=== PATIENT | male | born 1985 | race Hispanic/Latino ===

== ENCOUNTER 2023-09-08 22:34 | Emergency (ER) | payer OTHER ==
[~2023-09-08] VITALS: Ht 180.3 cm; Wt 181.0 kg
[2023-09-08 23:39] LABS: BASOPHILS % 0.4 % (0.0-1.0); EOSINOPHILS # (AUTO) 0.4 (0.0-0.4); EOSINOPHILS % 4.8 % (0.0-6.0); HEMATOCRIT 31.2 % (38.2-49.6); LYMPHOCYTES # (AUTO) 1.5 (1.0-3.2); LYMPHOCYTES % 20.1 % (18.0-39.1); MEAN CORPUSCULAR HEMOGLOBIN 23.1 pg (28-32); MEAN CORPUSCULAR HGB CONC 28.8 g/dL (31-35); MONOCYTES # (AUTO) 0.9 (0.2-0.8); MONOCYTES % 11.4 % (4.4-11.3); NEUTROPHILS # (AUTO) 4.7 (2.1-6.9); NEUTROPHILS % 62.8 % (38.7-80.0); PLATELET COUNT 78 x10e3/uL (140-360); RED CELL DISTRIBUTION WIDTH 17.6 % (11.7-14.4); WHITE BLOOD COUNT 7.52 x10e3/uL (4.8-10.8)
[2023-09-09] LABS: TROPONIN I 0.142 ng/mL (0-0.300)
[2023-09-09 00:01] LABS: ALBUMIN 2.2 g/dL (3.5-5.0); ALBUMIN/GLOBULIN RATIO 0.5 (0.8-2.0); ANION GAP 11.2 mmol/L (8-16); BILIRUBIN,TOTAL 2.4 mg/dL (0.2-1.2); CALCIUM 8.1 mg/dL (8.4-10.2); CREATININE, SERUM 0.71 mg/dL (0.72-1.25)
[2023-09-09 00:07] LABS: INFLUENZAE A&B ANTIGEN (RAPID) NEGATIVE (NEGATIVE)
[2023-09-09 00:08] LABS: STREPTOCOCCUS GRP A ANTIGEN NEGATIVE (NEGATIVE)
[2023-09-09 00:09] LABS: POTASSIUM 3.2 mmol/L (3.5-5.1)
[2023-09-09 02:07] LABS: TROPONIN I 0.158 ng/mL (0-0.300)
[2023-09-09] MEDS ORDERED: AZITHROMYCIN250 MG PO (02:46)
[2023-09-09 03:21] VITALS: PULSE 70; RESP 18; TEMP 98.5; O2SAT 99
== END 2023-09-09 03:24 | disposition home or self-care (01) ==
LOC: ER 22:45
DX: R06.02 Shortness of breath (principal); J02.9 Acute pharyngitis, unspecified; D64.9 Anemia, unspecified; E66.01 Morbid (severe) obesity due to excess calories; R94.31 Abnormal electrocardiogram [ECG] [EKG]; Z11.52 Encounter for screening for COVID-19
CPT/HCPCS: 36415; 71045; 80053; 82550; 83518; 83690; 83880; 84484; 85025; 87070; 87400; 93005 ×2; 99284; U0002

== ENCOUNTER 2024-01-10 01:35 | Inpatient (IN) | payer OTHER ==
[~2024-01-10] VITALS: Ht 167.6 cm; Wt 191.0 kg
[2024-01-10] VITALS (55 sets, daily range): BP systolic 112–169; BP diastolic 58–99; PULSE 77–102; RESP 15–32; TEMP 97.8–98.6; O2SAT 97–100
[~2024-01-10 01:35] MED LIST: AZITHROMYCIN250 MG PO
[2024-01-10 02:23] LABS: BASOPHILS % 0.6 % (0.0-1.0); EOSINOPHILS # (AUTO) 0.2 (0.0-0.4); EOSINOPHILS % 6.6 % (0.0-6.0); HEMATOCRIT 25.2 % (38.2-49.6); LYMPHOCYTES # (AUTO) 1.3 (1.0-3.2); MEAN CORPUSCULAR HEMOGLOBIN 20.8 pg (28-32); MEAN CORPUSCULAR VOLUME 77.1 fL (81-99); MONOCYTES # (AUTO) 0.6 (0.2-0.8); MONOCYTES % 20.1 % (4.4-11.3); NEUTROPHILS % 30.4 % (38.7-80.0); RED BLOOD COUNT 3.27 x10e6/uL (4.3-5.7); RED CELL DISTRIBUTION WIDTH 21.7 % (11.7-14.4); WHITE BLOOD COUNT 3.19 x10e3/uL (4.8-10.8)
[2024-01-10 02:36] LABS: ALBUMIN 2.2 g/dL (3.5-5.0); ALBUMIN/GLOBULIN RATIO 0.6 (0.8-2.0); ANION GAP 9.3 mmol/L (8-16); BILIRUBIN,TOTAL 4.4 mg/dL (0.2-1.2); CALCIUM 7.8 mg/dL (8.4-10.2); CREATININE, SERUM 0.65 mg/dL (0.72-1.25); TOTAL PROTEIN 6.1 g/dL (6.5-8.1)
[2024-01-10 02:38] LABS: POTASSIUM 3.3 mmol/L (3.5-5.1)
[2024-01-10 02:44] LABS: HEMOGLOBIN 6.8 g/dL (14.0-18.0); PLATELET COUNT 68 x10e3/uL (140-360)
[2024-01-10] MEDS ORDERED: SODIUM CHLORIDE FLUSH 10 ML SYR INJ PRN (03:00)
[2024-01-10] MEDS ORDERED: ONDANSETRON HCL INJ 2MG/ML 2ML 2 MG/ML VIAL IV PRN (03:00)
[2024-01-10 03:46] LABS: INR 1.78; PARTIAL THROMBOPLASTIN TIME 35.4 seconds (23.8-35.5); PROTHROMBIN TIME 21.7 seconds (11.9-14.5)
[2024-01-10] MEDS: FUROSEMIDE INJ 10 MG/ML 4 ML VIAL IV SCH (04:08)
[2024-01-10] MEDS: SODIUM CHLORIDE 0.9% 250ML 250 ML IV ONE (06:21)
[2024-01-10] MEDS ORDERED: FERROUS SULFAT325 M1 PO (08:01)
[2024-01-10] MEDS ORDERED: FUROSEMIDE40 MG PO (08:01)
[2024-01-10] MEDS ORDERED: SPIRONOLACTONE25 MG PO (08:01)
[2024-01-10] MEDS ORDERED: DOCUSATE SODIU100 MG PO (08:01)
[2024-01-10] MEDS ORDERED: K-DUR10 MEQ PO (08:02)
[2024-01-10] MEDS ORDERED: ALDACTONE50 MG PO (08:03)
[2024-01-10] MEDS ORDERED: PANTOPRAZOLE SO40 MG PO (08:07)
[2024-01-10 08:42] LABS: EOSINOPHILS % (MANUAL) 6 % (0-7); LYMPHOCYTES % (MANUAL) 37 % (19-48); MONOCYTES % (MANUAL) 24 % (3.4-9.0); NEUTROPHILS % (MANUAL) 33 % (40-74); PLATELET ESTIMATE MODERATELY DECREASED; PLATELET MORPHOLOGY COMMENT NORMAL; RBC MORPHOLOGY COMMENT NORMAL
[2024-01-10 08:43] LABS: ANISOCYTOSIS SLIGHT
[2024-01-10] MEDS ORDERED: ALBUTEROL/IPRATROPIUM 3 ML NEB NEB PRN (11:00)
[2024-01-10] MEDS ORDERED: SIMETHICONE 80 MG CHEW PO PRN (11:00)
[2024-01-10] MEDS ORDERED: MELATONIN 3 MG TAB PO PRN (11:00)
[2024-01-10] MEDS: SPIRONOLACTONE 25 MG TAB PO SCH (12:31)
[2024-01-10] MEDS: FUROSEMIDE INJ 10 MG/ML 2 ML VIAL IV SCH (19:05)
[2024-01-10] MEDS: DOCUSATE SODIUM 100 MG CAP PO SCH (19:05)
[2024-01-11] VITALS (7 sets, daily range): BP systolic 112–128; BP diastolic 59–74; PULSE 84–96; RESP 16–20; TEMP 97.7–98.6; O2SAT 99–100
[2024-01-11 00:36] LABS: % IRON SATURATION 11 % (15-50); IRON 34 ug/dL (65-175); TOTAL IRON BINDING CAPACITY 301 ug/dL (261-478); TRANSFERRIN 215 mg/dL (174-364)
[2024-01-11 01:34] LABS: FOLATE 5.1 ng/mL (7.0-15.4)
[2024-01-11 06:29] LABS: BASOPHILS % 0.8 % (0.0-1.0); EOSINOPHILS # (AUTO) 0.5 (0.0-0.4); EOSINOPHILS % 12.1 % (0.0-6.0); HEMATOCRIT 27.4 % (38.2-49.6); LYMPHOCYTES # (AUTO) 1.4 (1.0-3.2); LYMPHOCYTES % 34.2 % (18.0-39.1); MEAN CORPUSCULAR HGB CONC 29.2 g/dL (31-35); MEAN CORPUSCULAR VOLUME 75.3 fL (81-99); MONOCYTES # (AUTO) 0.7 (0.2-0.8); MONOCYTES % 16.8 % (4.4-11.3); NEUTROPHILS # (AUTO) 1.4 (2.1-6.9); NEUTROPHILS % 35.8 % (38.7-80.0); PLATELET COUNT 69 x10e3/uL (140-360); RED BLOOD COUNT 3.64 x10e6/uL (4.3-5.7); RED CELL DISTRIBUTION WIDTH 20.6 % (11.7-14.4); WHITE BLOOD COUNT 3.98 x10e3/uL (4.8-10.8)
[2024-01-11 06:46] LABS: INR 1.68; PROTHROMBIN TIME 20.7 seconds (11.9-14.5)
[2024-01-11 06:54] LABS: ALBUMIN 2.2 g/dL (3.5-5.0); BILIRUBIN,DIRECT 1.2 mg/dL (0.0-0.5); BILIRUBIN,TOTAL 5.8 mg/dL (0.2-1.2); TOTAL PROTEIN 6.2 g/dL (6.5-8.1)
[2024-01-11 06:56] LABS: ALBUMIN 2.2 g/dL (3.5-5.0); ALBUMIN/GLOBULIN RATIO 0.5 (0.8-2.0); ANION GAP 9.5 mmol/L (8-16); BILIRUBIN,TOTAL 5.9 mg/dL (0.2-1.2); CREATININE, SERUM 0.6 mg/dL (0.72-1.25); POTASSIUM 3.5 mmol/L (3.5-5.1); TOTAL PROTEIN 6.3 g/dL (6.5-8.1)
[2024-01-11] MEDS: PANTOPRAZOLE SOD 40 MG TABEC PO SCH ×2 (07:30→18:09)
[2024-01-11 07:59] LABS: PLATELET ESTIMATE MODERATELY DECREASED; PLATELET MORPHOLOGY COMMENT NORMAL
[2024-01-11 08:00] LABS: HYPOCHROMASIA MODERATE; MICROCYTOSIS MODERATE; RBC MORPHOLOGY COMMENT ABNORMAL
[2024-01-11 08:01] LABS: OVALOCYTES FEW; TARGET CELLS FEW; TEAR DROP CELLS FEW
[2024-01-11] MEDS: FERROUS SULFATE 325 MG TAB PO SCH (09:00)
[2024-01-11] MEDS: SPIRONOLACTONE 25 MG TAB PO SCH (09:00)
[2024-01-11] MEDS: FOLIC ACID 1 MG TAB PO SCH (09:30)
[2024-01-11] MEDS ORDERED: PHYTONADIONE 1 MG/0.5 ML AMP IM ONE (11:00)
[2024-01-11] MEDS: PHYTONADIONE IV ONE (12:59)
[2024-01-11] MEDS: SODIUM CHLORIDE 0.9% IV ONE (12:59)
[2024-01-11] MEDS: IRON SUCROSE 100 MG in SODIUM CHLORIDE 0.9% 100 ML IV SCH (13:35)
[2024-01-11] MEDS ORDERED: KETAMINE 50MG/5ML SYR ONE ×2 (14:37→15:33)
[2024-01-11] MEDS ORDERED: PROPOFOL IV EMULSION 10 MG/ML 20 ML VIAL ONE ×2 (14:38→15:33)
[2024-01-11] MEDS ORDERED: MIDAZOLAM HCL 2 MG/2 ML VIAL ONE (14:38)
[2024-01-11] MEDS ORDERED: LIDOCAINE HCL 2% LOCAL 20 ML VIAL ONE (14:39)
[2024-01-11] MEDS ORDERED: FERROUS SULFATE 325 MG TAB PO SCH (17:00)
[2024-01-11] MEDS: SUCRALFATE 1 GM/10 ML SUSP NG ONE (18:09)
[2024-01-11] MEDS: SUCRALFATE 1 GM/10 ML SUSP NG SCH (21:11)
[2024-01-12] VITALS (10 sets, daily range): BP systolic 122–132; BP diastolic 57–80; PULSE 81–93; RESP 17–21; TEMP 97.5–98.3; O2SAT 97–100
[2024-01-12 07:31] LABS: ANION GAP 9.5 mmol/L (8-16); CALCIUM 7.3 mg/dL (8.4-10.2); CREATININE, SERUM 0.6 mg/dL (0.72-1.25); POTASSIUM 3.5 mmol/L (3.5-5.1)
[2024-01-12] MEDS: CYANOCOBALAMIN 1,000 MCG TAB PO SCH (08:56)
[2024-01-12 14:57] LABS: BASOPHILS % 0.9 % (0.0-1.0); EOSINOPHILS # (AUTO) 0.3 (0.0-0.4); EOSINOPHILS % 9.1 % (0.0-6.0); HEMOGLOBIN 7.8 g/dL (14.0-18.0); LYMPHOCYTES # (AUTO) 1.3 (1.0-3.2); LYMPHOCYTES % 38.6 % (18.0-39.1); MEAN CORPUSCULAR HEMOGLOBIN 22.3 pg (28-32); MEAN CORPUSCULAR HGB CONC 27.9 g/dL (31-35); MEAN CORPUSCULAR VOLUME 80.2 fL (81-99); MONOCYTES # (AUTO) 0.6 (0.2-0.8); MONOCYTES % 16.4 % (4.4-11.3); NEUTROPHILS # (AUTO) 1.2 (2.1-6.9); NEUTROPHILS % 34.7 % (38.7-80.0); PLATELET COUNT 67 x10e3/uL (140-360); RED BLOOD COUNT 3.49 x10e6/uL (4.3-5.7); RED CELL DISTRIBUTION WIDTH 21.6 % (11.7-14.4); WHITE BLOOD COUNT 3.42 x10e3/uL (4.8-10.8)
[2024-01-13] VITALS: BP 139/63; PULSE 94; RESP 21; TEMP 98.3; O2SAT 100
[2024-01-13 07:22] LABS: BASOPHILS % 0.6 % (0.0-1.0); EOSINOPHILS # (AUTO) 0.3 (0.0-0.4); EOSINOPHILS % 10.2 % (0.0-6.0); HEMATOCRIT 28.9 % (38.2-49.6); HEMOGLOBIN 8.2 g/dL (14.0-18.0); LYMPHOCYTES # (AUTO) 1.4 (1.0-3.2); LYMPHOCYTES % 41.5 % (18.0-39.1); MEAN CORPUSCULAR HEMOGLOBIN 21.9 pg (28-32); MEAN CORPUSCULAR HGB CONC 28.4 g/dL (31-35); MEAN CORPUSCULAR VOLUME 77.1 fL (81-99); MONOCYTES # (AUTO) 0.5 (0.2-0.8); MONOCYTES % 13.8 % (4.4-11.3); NEUTROPHILS # (AUTO) 1.1 (2.1-6.9); NEUTROPHILS % 33.3 % (38.7-80.0); RED BLOOD COUNT 3.75 x10e6/uL (4.3-5.7); RED CELL DISTRIBUTION WIDTH 21.5 % (11.7-14.4); WHITE BLOOD COUNT 3.25 x10e3/uL (4.8-10.8)
[2024-01-13 07:30] LABS: ALBUMIN 2.3 g/dL (3.5-5.0); ALBUMIN/GLOBULIN RATIO 0.6 (0.8-2.0); ANION GAP 11.3 mmol/L (8-16); BILIRUBIN,TOTAL 5.5 mg/dL (0.2-1.2); CALCIUM 8.1 mg/dL (8.4-10.2); CREATININE, SERUM 0.67 mg/dL (0.72-1.25); TOTAL PROTEIN 6.3 g/dL (6.5-8.1)
[2024-01-13 07:35] LABS: PLATELET COUNT 71 x10e3/uL (140-360)
[2024-01-13 07:36] VITALS: PULSE 85; RESP 18; O2SAT 96
[2024-01-13 07:37] LABS: POTASSIUM 3.3 mmol/L (3.5-5.1)
[2024-01-13] MEDS ORDERED: Folic Acid PO (07:54)
[2024-01-13] MEDS ORDERED: FERROUS SULFAT325 M1 PO (07:54)
[2024-01-13] MEDS ORDERED: Sucralfate Susp 1GM/10ML NG (07:54)
[2024-01-13] MEDS ORDERED: B-121000 MC1 PO (07:54)
[2024-01-13] MEDS ORDERED: PANTOPRAZOLE SO40 MG PO (07:54)
[2024-01-13 08:01] VITALS: BP 120/56; PULSE 90; RESP 20; TEMP 97.9; O2SAT 99
[2024-01-13 08:36] VITALS: BP 120/56; PULSE 90; RESP 20; TEMP 97.9; O2SAT 100
[2024-01-14 09:59] LABS: HEPATITIS A ANTIBODY IGM (P) Negative; HEPATITIS B SURFACE AG (P) Negative
[2024-01-14 10:00] LABS: HEPATITIS B CORE IGM (P) Negative; HEPATITIS C ANTIBODY Non Reactive
== END 2024-01-13 10:45 | disposition home or self-care (01) | DRG 378 ==
LOC: ER 01:39 → ERHOLD 02:59 → ICU 04:20 → MED/SURG3 23:09
PROVIDERS: ADMIT Internal Medicine; ATTEND Internal Medicine
PROC: 30233K1 Transfusion of Nonautologous Frozen Plasma into Peripheral Vein, Percutaneous Approach (ICD-10-PCS; 2024-01-10)
PROC: 30233N1 Transfusion of Nonautologous Red Blood Cells into Peripheral Vein, Percutaneous Approach (ICD-10-PCS; 2024-01-10)
PROC: 0DB78ZX Excision of Stomach, Pylorus, Via Natural or Artificial Opening Endoscopic, Diagnostic (ICD-10-PCS; principal; 2024-01-11 15:07)
PROC: 0D5A8ZZ Destruction of Jejunum, Via Natural or Artificial Opening Endoscopic (ICD-10-PCS; 2024-01-11 15:07)
DX: K31.811 Angiodysplasia of stomach and duodenum with bleeding (principal); D61.818 Other pancytopenia; D68.4 Acquired coagulation factor deficiency; R18.8 Other ascites; Z68.44 Body mass index [BMI] 60.0-69.9, adult; E66.01 Morbid (severe) obesity due to excess calories; D52.9 Folate deficiency anemia, unspecified; K74.60 Unspecified cirrhosis of liver; K75.81 Nonalcoholic steatohepatitis (NASH); D50.9 Iron deficiency anemia, unspecified; K29.40 Chronic atrophic gastritis without bleeding; K25.9 Gastric ulcer, unspecified as acute or chronic, without hemorrhage or perforation; I10 Essential (primary) hypertension; Z13.1 Encounter for screening for diabetes mellitus; Z87.891 Personal history of nicotine dependence; Z79.899 Other long term (current) drug therapy
CPT/HCPCS: 36415; 43239; 43255; 76700; 80048; 80053; 80076; 82607; 82746; 83036; 83540; 83880; 84466; 85025; 85045; 85610; 85730; 86850; 86900; 86920; 88305; 88342; 94799; 99252; 99284; J1756; J1940; J2003; J2250; J3430; J7050; P9016; P9017

== ENCOUNTER 2024-03-01 13:39 | Emergency (ER) | payer SELFPAY ==
[~2024-03-01] VITALS: Ht 167.6 cm; Wt 195.0 kg
[~2024-03-01 13:39] MED LIST changes: +ALDACTONE50 MG PO; +B-121000 MC1 PO; +DOCUSATE SODIU100 MG PO; +FERROUS SULFAT325 M1 PO; +FUROSEMIDE40 MG PO; +Folic Acid PO; +K-DUR10 MEQ PO; +PANTOPRAZOLE SO40 MG PO; +SPIRONOLACTONE25 MG PO; +Sucralfate Susp 1GM/10ML NG
[2024-03-01 14:00] VITALS: TEMP 98.4
[2024-03-01] MEDS ORDERED: DOXYCYCLINE HY100 MG PO (16:12)
[2024-03-01] MEDS ORDERED: FLUCONAZOLE200 MG PO (16:12)
[2024-03-01] MEDS ORDERED: LASIX40 MG PO (16:13)
[2024-03-01 16:15] VITALS: PULSE 86; RESP 16; O2SAT 100
== END 2024-03-01 16:35 | disposition home or self-care (01) ==
LOC: ER 14:05
DX: R60.9 Edema, unspecified (principal); K76.9 Liver disease, unspecified; E66.01 Morbid (severe) obesity due to excess calories
CPT/HCPCS: 99282

== ENCOUNTER 2024-05-20 00:57 | Emergency (ER) | payer OTHER ==
[~2024-05-20] VITALS: Ht 167.6 cm; Wt 195.0 kg
[~2024-05-20 00:57] MED LIST changes: +DOXYCYCLINE HY100 MG PO; +FLUCONAZOLE200 MG PO; +LASIX40 MG PO
[2024-05-20 01:30] LABS: BASOPHILS # (AUTO) 0.1 (0.0-0.1); BASOPHILS % 0.8 % (0.0-1.0); EOSINOPHILS # (AUTO) 0.5 (0.0-0.4); EOSINOPHILS % 7.2 % (0.0-6.0); HEMATOCRIT 28.6 % (38.2-49.6); HEMOGLOBIN 8.3 g/dL (14.0-18.0); LYMPHOCYTES # (AUTO) 1.9 (1.0-3.2); LYMPHOCYTES % 25.4 % (18.0-39.1); MEAN CORPUSCULAR HEMOGLOBIN 22.7 pg (28-32); MEAN CORPUSCULAR VOLUME 78.4 fL (81-99); MONOCYTES # (AUTO) 0.9 (0.2-0.8); MONOCYTES % 11.6 % (4.4-11.3); NEUTROPHILS # (AUTO) 4.1 (2.1-6.9); NEUTROPHILS % 54.7 % (38.7-80.0); PLATELET COUNT 125 x10e3/uL (140-360); RED BLOOD COUNT 3.65 x10e6/uL (4.3-5.7); RED CELL DISTRIBUTION WIDTH 21.2 % (11.7-14.4); WHITE BLOOD COUNT 7.41 x10e3/uL (4.8-10.8)
[2024-05-20 01:35] LABS: CORONAVIRUS COVID-19 AG NEGATIVE (NEGATIVE); INFLUENZA A AG NEGATIVE (NEGATIVE); INFLUENZA B AG NEGATIVE (NEGATIVE)
[2024-05-20 01:46] LABS: ALANINE AMINOTRANSFERASE 28 IU/L (0-55); ALBUMIN 1.7 g/dL (3.5-5.0); ALBUMIN/GLOBULIN RATIO 0.4 (0.8-2.0); ALKALINE PHOSPHATASE 176 IU/L (40-150); ANION GAP 10.8 mmol/L (8-16); BLOOD UREA NITROGEN 14 mg/dL (7-26); BUN/CREATININE RATIO 16 (6-25); CALCIUM 7.4 mg/dL (8.4-10.2); CARBON DIOXIDE 22 mmol/L (22-29); CHLORIDE 103 mmol/L (98-107); CREATINE KINASE 75 IU/L (30-200); CREATININE, SERUM 0.89 mg/dL (0.72-1.25); EST GLOMERULAR FILTRATION RATE 113 ML/MIN (>=60); GLUCOSE 131 mg/dL (74-118); POTASSIUM 3.8 mmol/L (3.5-5.1); SODIUM 132 mmol/L (136-145); TOTAL PROTEIN 6.2 g/dL (6.5-8.1)
[2024-05-20 02:10] LABS: TROPONIN I < 0.05 ng/mL (0.0-0.40)
[2024-05-20 02:30] VITALS: PULSE 100; RESP 16; TEMP 98.2; O2SAT 100
[2024-05-20] MEDS ORDERED: LASIX20 MG PO (02:30)
[2024-05-20 04:50] LABS: HYPOCHROMASIA MODERATE; POLYCHROMASIA FEW
[2024-05-20 04:51] LABS: ANISOCYTOSIS MODERATE; ELLIPTOCYTE, RBC SLIGHT; OVALOCYTES FEW; POIKILOCYTOSIS MODERATE
[2024-05-20 04:52] LABS: MICROCYTOSIS MODERATE; PLATELET ESTIMATE ADEQUATE; PLATELET MORPHOLOGY COMMENT NORMAL; RBC MORPHOLOGY COMMENT ABNORMAL; TEAR DROP CELLS FEW
[2024-05-20 04:53] LABS: TARGET CELLS FEW
== END 2024-05-20 02:40 | disposition home or self-care (01) ==
LOC: ER 01:02
DX: R53.1 Weakness (principal); E66.01 Morbid (severe) obesity due to excess calories; K76.9 Liver disease, unspecified; R53.83 Other fatigue; Z11.52 Encounter for screening for COVID-19
CPT/HCPCS: 36415; 71045; 80053; 82550; 83690; 83880; 84484; 85025; 93005; 99284

== ENCOUNTER 2024-08-29 17:54 | Inpatient (IN) | payer OTHER ==
[~2024-08-29] VITALS: Ht 170.2 cm; Wt 172.8 kg
[~2024-08-29 17:54] MED LIST changes: +LASIX20 MG PO
[2024-08-29] MEDS ORDERED: SODIUM CHLORIDE 0.9% 1000ML 1,000 ML ONE (18:09)
[2024-08-29 18:16] VITALS: TEMP 97.4
[2024-08-29] MEDS: SODIUM CHLORIDE 0.9% 1000ML 1,000 ML IV ONE (18:30)
[2024-08-29 18:47] LABS: INR 1.83
[2024-08-29 18:56] LABS: EST GLOMERULAR FILTRATION RATE 13.0 ML/MIN (>=60)
[2024-08-29 19:12] LABS: RED CELL DISTRIBUTION WIDTH 26.9 % (11.7-14.4)
[2024-08-29 19:13] LABS: BASOPHILS % 0.5 % (0.0-1.0); EOSINOPHILS % 2.3 % (0.0-6.0); LYMPHOCYTES % 12.3 % (18.0-39.1); MONOCYTES % 9.1 % (4.4-11.3); NEUTROPHILS % 72.6 % (38.7-80.0)
[2024-08-29 20:15] LABS: LEUKOCYTE ESTERASE ,URINE NEGATIVE (NEGATIVE); PROTEIN,URINE DIPSTICK NEGATIVE (NEGATIVE); URINE UROBILINOGEN 0.2 mg/dL (0.2 - 1)
[2024-08-29] MEDS: MUPIROCIN 2% OINT 22 GM TUBE TOP SCH (20:15)
[2024-08-29] MEDS ORDERED: SODIUM CHLORIDE FLUSH 10 ML SYR INJ PRN (20:15)
[2024-08-29 20:20] LABS: EPITHELIAL CELLS,URINE MODERATE /LPF; WBC,URINE (MAN) 0-5 /HPF (0-5)
[2024-08-29 20:40] LABS: % IRON SATURATION 25.0 % (15-50)
[2024-08-29 21:37] LABS: ABG PCO2 22 mmHg (35-45); ABG PH 7.48 (7.35-7.45); ABG PO2 114 mmHg (80-105)
[2024-08-29 21:38] LABS: ABG BASE EXCESS -7.0 mmol/L (-2 - 3); ABG HCO3 17 mmol/L (22-26); ABG OXYGEN SATURATION 99.0 % (95-98); ABG TCO2 17
[2024-08-29 21:46] VITALS: PULSE 64; RESP 14; RESP 18; O2SAT 100
[2024-08-29 22:33] VITALS: PULSE 89
[2024-08-29 23:00] VITALS: BP 95/29; PULSE 83; RESP 27; TEMP 97.8; O2SAT 100
[2024-08-29 23:30] VITALS: BP 95/29; RESP 24
[2024-08-29 23:45] VITALS: PULSE 87; RESP 16; O2SAT 100
[2024-08-30] VITALS (80 sets, daily range): BP systolic 77–136; BP diastolic 27–78; PULSE 71–104; RESP 17–39; TEMP 96.9–98.5; O2SAT 96–100
[2024-08-30] MEDS: NOREPINEPHRINE 8 MG/D5W 250 ML 250 ML IV SCH (01:20)
[2024-08-30] MEDS: SODIUM CHLORIDE 0.9% 250ML 250 ML IV ONE (01:27)
[2024-08-30] MEDS: SODIUM CHLORIDE 0.9% 250ML 250 ML ONE (03:03)
[2024-08-30 07:43] LABS: BASOPHILS % 0.6 % (0.0-1.0); EOSINOPHILS % 1.9 % (0.0-6.0); LYMPHOCYTES % 13.1 % (18.0-39.1); MONOCYTES % 9.8 % (4.4-11.3); NEUTROPHILS % 70.5 % (38.7-80.0); RED CELL DISTRIBUTION WIDTH 25.9 % (11.7-14.4)
[2024-08-30 08:07] LABS: EST GLOMERULAR FILTRATION RATE 14.0 ML/MIN (>=60)
[2024-08-30] MEDS: MIDODRINE 2.5 MG TAB PO SCH (09:21)
[2024-08-30] MEDS: RIFAXIMIN 550 MG TABLET PO SCH (09:26)
[2024-08-30] MEDS: IRON SUCROSE 100 MG in SODIUM CHLORIDE 0.9% 100 ML IV SCH (09:26)
[2024-08-30] MEDS: ALBUMIN 25% 25GM 100ML 0.25 GM/ML BTL IV SCH (12:07)
[2024-08-30] MEDS: Vancomycin IV 1 GM in SODIUM CHLORIDE 0.9% 250ML 250 ML IV ONE (12:07)
[2024-08-30] MEDS: PANTOPRAZOLE SOD 40 MG TABEC PO SCH (12:07)
[2024-08-30] MEDS: MIDODRINE HCL 5 MG TABLET PO SCH (12:09)
[2024-08-30] MEDS ORDERED: LACTULOSE SYRUP 20 GM/30 ML UDC PO PRN (13:15)
[2024-08-30] MEDS ORDERED: ALBUMIN 25% 12.5GM 0.25 GM/ML BTL IV PRN (15:00)
[2024-08-30] MEDS ORDERED: HEPARIN SOD (PORCINE) 1000 UNIT/ML SDV IV PRN (15:00)
[2024-08-30] MEDS ORDERED: SODIUM CHLORIDE 0.9% 1000ML 2,000 ML IV PRN (16:15)
[2024-08-31] VITALS (71 sets, daily range): BP systolic 66–142; BP diastolic 41–66; PULSE 65–93; RESP 12–39; TEMP 97.8–98.3; O2SAT 100
[2024-08-31 07:28] LABS: EST GLOMERULAR FILTRATION RATE 18.0 ML/MIN (>=60)
[2024-08-31 08:02] LABS: BASOPHILS % 0.7 % (0.0-1.0); EOSINOPHILS % 3.5 % (0.0-6.0); LYMPHOCYTES % 21.7 % (18.0-39.1); MONOCYTES % 14.9 % (4.4-11.3); NEUTROPHILS % 56.5 % (38.7-80.0); RED CELL DISTRIBUTION WIDTH 26.3 % (11.7-14.4)
[2024-08-31] MEDS: LACTULOSE SYRUP 20 GM/30 ML UDC PO STA (08:49)
[2024-08-31] MEDS ORDERED: EPOETIN ALFA-EPBX 10,000 UNIT/ML VIAL SC SCH (10:30)
[2024-08-31] MEDS: LACTULOSE SYRUP 20 GM/30 ML UDC PO ONE (10:55)
[2024-08-31] MEDS: LACTULOSE SYRUP 20 GM/30 ML UDC PO SCH (14:05)
[2024-08-31] MEDS ORDERED: ALBUMIN 25% 25GM 100ML 0.25 GM/ML BTL IV PRN (15:45)
[2024-08-31] MEDS: SODIUM CHLORIDE 0.9% 250ML 250 ML IV ONE (16:01)
[2024-08-31] MEDS: SODIUM CHLORIDE 0.9% 250ML 250 ML ONE (16:02)
[2024-09-01] VITALS (59 sets, daily range): BP systolic 86–134; BP diastolic 42–109; PULSE 25–95; RESP 13–41; TEMP 98–98.4; O2SAT 97–100
[2024-09-01 04:57] LABS: BASOPHILS % 0.6 % (0.0-1.0); EOSINOPHILS % 4.1 % (0.0-6.0); LYMPHOCYTES % 17.5 % (18.0-39.1); MONOCYTES % 12.5 % (4.4-11.3); NEUTROPHILS % 62.1 % (38.7-80.0); RED CELL DISTRIBUTION WIDTH 25.6 % (11.7-14.4)
[2024-09-01 05:18] LABS: EST GLOMERULAR FILTRATION RATE 24.0 ML/MIN (>=60)
[2024-09-01] MEDS: FUROSEMIDE INJ 10 MG/ML 4 ML VIAL IV ONE (11:29)
[2024-09-01] MEDS: EPOETIN ALFA-EPBX 10,000 UNIT/ML VIAL SC SCH (11:30)
[2024-09-02] VITALS (35 sets, daily range): BP systolic 99–123; BP diastolic 42–56; PULSE 61–88; RESP 19–42; TEMP 98–98.4; O2SAT 98–100
[2024-09-02 05:12] LABS: HEPATITIS B SURFACE AB QUANT <3.5 mIU/mL (Immunity>10); HEPATITIS B SURFACE AG (P) Negative (Negative)
[2024-09-02 05:31] LABS: BASOPHILS % 0.4 % (0.0-1.0); EOSINOPHILS % 4.7 % (0.0-6.0); LYMPHOCYTES % 18.4 % (18.0-39.1); MONOCYTES % 13.3 % (4.4-11.3); NEUTROPHILS % 61.2 % (38.7-80.0); RED CELL DISTRIBUTION WIDTH 26.1 % (11.7-14.4)
[2024-09-02 06:13] LABS: EST GLOMERULAR FILTRATION RATE 26.0 ML/MIN (>=60)
[2024-09-02] MEDS: FUROSEMIDE INJ 10 MG/ML 4 ML VIAL IV SCH (07:44)
[2024-09-02 07:53] LABS: EOSINOPHILS % (MANUAL) 3 % (0-7); LYMPHOCYTES % (MANUAL) 11 % (19-48); MONOCYTES % (MANUAL) 8 % (3.4-9.0); NEUTROPHILS % (MANUAL) 78 % (40-74); PLATELET ESTIMATE MODERATELY DECREASED
[2024-09-02 07:54] LABS: ELLIPTOCYTE, RBC SLIGHT; PLATELET MORPHOLOGY COMMENT NORMAL; RBC MORPHOLOGY COMMENT ABNORMAL
[2024-09-02] MEDS: FUROSEMIDE INJ 100 MG in SODIUM CHLORIDE 0.9% 90 ML IV SCH (12:24)
[2024-09-02] MEDS: OCTREOTIDE ACETATE 0.1 MG/ML 100MCG AMP SC SCH (14:01)
[2024-09-02] MEDS: MUPIROCIN 2% OINT 22 GM TUBE TOP SCH (17:11)
[2024-09-02 18:00] LABS: CREATININE,URINE RANDOM 102.3 mg/dL (63-166); TOTAL PROTEIN 24HR, URINE 445.4 mg/24hr (50-100); TOTAL PROTEIN, URINE 26.2 mg/dL (1-14)
[2024-09-03] VITALS (8 sets, daily range): BP systolic 99–109; BP diastolic 43–53; PULSE 56–93; RESP 18–20; TEMP 97.8–98.8; O2SAT 97–100
[2024-09-03 05:48] LABS: BASOPHILS % 0.4 % (0.0-1.0); EOSINOPHILS % 4.9 % (0.0-6.0); LYMPHOCYTES % 16.4 % (18.0-39.1); MONOCYTES % 12.1 % (4.4-11.3); NEUTROPHILS % 64.6 % (38.7-80.0); RED CELL DISTRIBUTION WIDTH 27.0 % (11.7-14.4)
[2024-09-03 06:23] LABS: EST GLOMERULAR FILTRATION RATE 30.0 ML/MIN (>=60)
[2024-09-03] MEDS: LACTULOSE SYRUP 20 GM/30 ML UDC PO SCH (06:24)
[2024-09-03 10:50] LABS: ABG BASE EXCESS -7.0 mmol/L (-2 - 3); ABG HCO3 17 mmol/L (22-26); ABG OXYGEN SATURATION 99.0 % (95-98); ABG PCO2 22 mmHg (35-45); ABG PH 7.48 (7.35-7.45); ABG PO2 114 mmHg (80-105); ABG TCO2 17
[2024-09-03] MEDS: LIDOCAINE 4% PATCH TP SCH (16:29)
[2024-09-03] MEDS: POTASSIUM CHLORIDE 20 MEQ TAB CR PO STA (16:29)
[2024-09-04 01:46] VITALS: BP 113/46; PULSE 94; RESP 18; TEMP 98.2; O2SAT 100
[2024-09-04 05:22] LABS: BASOPHILS % 0.2 % (0.0-1.0); EOSINOPHILS % 2.7 % (0.0-6.0); LYMPHOCYTES % 11.8 % (18.0-39.1); MONOCYTES % 12.1 % (4.4-11.3); NEUTROPHILS % 72.0 % (38.7-80.0); RED CELL DISTRIBUTION WIDTH 27.2 % (11.7-14.4)
[2024-09-04 05:59] LABS: EST GLOMERULAR FILTRATION RATE 40.0 ML/MIN (>=60)
[2024-09-04] MEDS: HYDROCODONE/APAP 5MG-325MG TAB PO PRN (07:04)
[2024-09-04 08:00] VITALS: BP 114/51; PULSE 91; RESP 21; TEMP 97.7; O2SAT 100
[2024-09-04] MEDS: POTASSIUM CHLORIDE 10MEQ EA PO ONE (08:32)
[2024-09-04 09:09] VITALS: BP 114/51; PULSE 91; RESP 21; TEMP 97.7; O2SAT 100
[2024-09-04 12:00] VITALS: BP 106/57; PULSE 59; RESP 20; TEMP 98.1; O2SAT 100
[2024-09-04 16:00] VITALS: BP 104/49; PULSE 87; RESP 20; TEMP 98.3; O2SAT 100
[2024-09-04 20:00] VITALS: BP 111/54; PULSE 86; RESP 18; TEMP 98.4; O2SAT 100
[2024-09-05] VITALS (8 sets, daily range): BP systolic 101–115; BP diastolic 41–56; PULSE 76–86; RESP 17–20; TEMP 97.8–98.4; O2SAT 100
[2024-09-05 05:39] LABS: BASOPHILS % 0.3 % (0.0-1.0); EOSINOPHILS % 2.9 % (0.0-6.0); LYMPHOCYTES % 13.5 % (18.0-39.1); MONOCYTES % 12.6 % (4.4-11.3); NEUTROPHILS % 69.2 % (38.7-80.0); RED CELL DISTRIBUTION WIDTH 27.0 % (11.7-14.4)
[2024-09-05 06:02] LABS: EST GLOMERULAR FILTRATION RATE 41.0 ML/MIN (>=60)
[2024-09-05] MEDS ORDERED: ALBUMIN 25% 25GM 100ML 0.25 GM/ML BTL IV SCH (09:00)
[2024-09-05] MEDS: ALBUMIN 25% 25GM 100ML 100 ML IV SCH (09:18)
[2024-09-06 00:09] VITALS: BP 111/51; PULSE 80; RESP 16; TEMP 98; O2SAT 100
[2024-09-06 04:35] VITALS: BP 99/44; PULSE 85; RESP 15; TEMP 98.3; O2SAT 100
[2024-09-06 07:27] LABS: BASOPHILS % 0.4 % (0.0-1.0); EOSINOPHILS % 3.6 % (0.0-6.0); LYMPHOCYTES % 13.8 % (18.0-39.1); MONOCYTES % 15.0 % (4.4-11.3); NEUTROPHILS % 65.8 % (38.7-80.0); RED CELL DISTRIBUTION WIDTH 27.5 % (11.7-14.4)
[2024-09-06 07:56] LABS: EST GLOMERULAR FILTRATION RATE 45.0 ML/MIN (>=60)
[2024-09-06 09:03] VITALS: BP 105/52; PULSE 90; RESP 18; TEMP 97.8; O2SAT 100
[2024-09-06 09:06] VITALS: BP 105/52; PULSE 90; RESP 18; TEMP 97.8; O2SAT 100
[2024-09-06] MEDS: OCTREOTIDE ACETATE 0.1 MG/ML 100MCG AMP SC SCH (09:48)
[2024-09-06 15:45] VITALS: BP 109/49; PULSE 80; RESP 16; TEMP 98.1; O2SAT 100
[2024-09-06 20:00] VITALS: BP 98/43; PULSE 89; RESP 18; TEMP 98.6; O2SAT 100
[2024-09-06] MEDS: FUROSEMIDE INJ 10 MG/ML 4 ML VIAL IV SCH (21:23)
[2024-09-07] VITALS: BP 107/49; PULSE 91; RESP 18; TEMP 98.2; O2SAT 100
[2024-09-07 04:00] VITALS: BP 108/51; PULSE 86; RESP 18; TEMP 98.3; O2SAT 100
[2024-09-07 07:06] LABS: EST GLOMERULAR FILTRATION RATE 44.0 ML/MIN (>=60)
[2024-09-07 07:29] LABS: BASOPHILS % 0.4 % (0.0-1.0); EOSINOPHILS % 3.5 % (0.0-6.0); LYMPHOCYTES % 13.4 % (18.0-39.1); MONOCYTES % 16.4 % (4.4-11.3); NEUTROPHILS % 65.5 % (38.7-80.0); RED CELL DISTRIBUTION WIDTH 27.4 % (11.7-14.4)
[2024-09-07 08:00] VITALS: BP 96/3; PULSE 89; RESP 18; TEMP 98.8; O2SAT 100
[2024-09-07] MEDS: MAGNESIUM SULFATE 2GM/50ML 50 ML IV ONE (11:56)
[2024-09-07] MEDS: POTASSIUM CHLORIDE 10MEQ EA PO ONE (11:57)
[2024-09-07] MEDS: SODIUM CHLORIDE 0.9% 250ML 250 ML IV ONE (13:34)
[2024-09-07] MEDS: FUROSEMIDE 40 MG TAB PO SCH (17:10)
[2024-09-07 20:00] VITALS: BP 107/47; PULSE 81; RESP 18; TEMP 98.9; O2SAT 100
[2024-09-07 21:00] VITALS: BP 107/47; PULSE 81; RESP 18; TEMP 98.9; O2SAT 100
[2024-09-08] VITALS (7 sets, daily range): BP systolic 98–111; BP diastolic 39–56; PULSE 69–84; RESP 16–20; TEMP 97.8–98.8; O2SAT 100
[2024-09-08 05:30] LABS: BASOPHILS % 0.5 % (0.0-1.0); EOSINOPHILS % 4.2 % (0.0-6.0); LYMPHOCYTES % 13.8 % (18.0-39.1); MONOCYTES % 17.3 % (4.4-11.3); NEUTROPHILS % 63.3 % (38.7-80.0); RED CELL DISTRIBUTION WIDTH 26.6 % (11.7-14.4)
[2024-09-08 05:48] LABS: EST GLOMERULAR FILTRATION RATE 48.0 ML/MIN (>=60)
[2024-09-08] MEDS: POTASSIUM CHLORIDE 10MEQ EA PO ONE (13:08)
[2024-09-08] MEDS: POTASSIUM CHLORIDE 20 MEQ TAB CR PO ONE (15:34)
[2024-09-09] VITALS (7 sets, daily range): BP systolic 91–108; BP diastolic 40–52; PULSE 78–86; RESP 18–20; TEMP 97.3–98.1; O2SAT 100
[2024-09-09 05:41] LABS: BASOPHILS % 0.4 % (0.0-1.0); EOSINOPHILS % 5.0 % (0.0-6.0); LYMPHOCYTES % 15.0 % (18.0-39.1); MONOCYTES % 16.3 % (4.4-11.3); NEUTROPHILS % 62.8 % (38.7-80.0); RED CELL DISTRIBUTION WIDTH 26.9 % (11.7-14.4)
[2024-09-09 06:37] LABS: EST GLOMERULAR FILTRATION RATE 46.0 ML/MIN (>=60)
[2024-09-09] MEDS: POTASSIUM CHLORIDE 20 MEQ TAB CR PO SCH (08:59)
[2024-09-09] MEDS: LACTULOSE SYRUP 20 GM/30 ML UDC PO PRN (10:49)
[2024-09-09] MEDS ORDERED: CEPHALEXIN500 MG PO (17:00)
[2024-09-09] MEDS ORDERED: POTASSIUM CHLO20 ME1 PO (17:00)
[2024-09-09] MEDS ORDERED: FUROSEMIDE40 MG PO (17:00)
[2024-09-09] MEDS ORDERED: XIFAXAN550 MG PO (17:00)
[2024-09-09] MEDS ORDERED: DOXYCYCLINE HY100 MG PO (17:00)
[2024-09-09] MEDS ORDERED: LACTULOSE10 GM/151 PO (17:00)
== END 2024-09-09 21:40 | disposition home or self-care (01) | DRG 432 ==
LOC: ER 18:08 → ERHOLD 20:11 → ICU 22:30 → MED/SURG 09-02 16:30
PROVIDERS: ADMIT Internal Medicine; ATTEND Internal Medicine
PROC: 4A033B1 Measurement of Arterial Pressure, Peripheral, Percutaneous Approach (ICD-10-PCS; principal; 2024-08-29)
PROC: 05HN33Z Insertion of Infusion Device into Left Internal Jugular Vein, Percutaneous Approach (ICD-10-PCS; 2024-08-29)
PROC: 30233N1 Transfusion of Nonautologous Red Blood Cells into Peripheral Vein, Percutaneous Approach (ICD-10-PCS; 2024-08-29)
PROC: 3E033XZ Introduction of Vasopressor into Peripheral Vein, Percutaneous Approach (ICD-10-PCS; 2024-08-29)
PROC: 5A1D70Z Performance of Urinary Filtration, Intermittent, Less than 6 Hours Per Day (ICD-10-PCS; 2024-08-30)
DX: K74.60 Unspecified cirrhosis of liver (principal); K76.7 Hepatorenal syndrome; R57.8 Other shock; N17.9 Acute kidney failure, unspecified; K76.6 Portal hypertension; I85.10 Secondary esophageal varices without bleeding; D68.9 Coagulation defect, unspecified; Z68.43 Body mass index [BMI] 50.0-59.9, adult; D61.818 Other pancytopenia; L03.116 Cellulitis of left lower limb; D64.9 Anemia, unspecified; R60.9 Edema, unspecified; E66.01 Morbid (severe) obesity due to excess calories; Z87.442 Personal history of urinary calculi; K75.81 Nonalcoholic steatohepatitis (NASH); K76.82 Hepatic encephalopathy; I87.2 Venous insufficiency (chronic) (peripheral); D50.0 Iron deficiency anemia secondary to blood loss (chronic); I12.9 Hypertensive chronic kidney disease with stage 1 through stage 4 chronic kidney disease, or unspecified chronic kidney disease; E11.22 Type 2 diabetes mellitus with diabetic chronic kidney disease; N18.31 Chronic kidney disease, stage 3a; I95.9 Hypotension, unspecified; D50.9 Iron deficiency anemia, unspecified; E87.6 Hypokalemia
CPT/HCPCS: 36415; 36555; 36600; 51700; 71045; 76770; 80048; 80053; 81001; 81050; 82140; 82248; 82550; 82570; 82607; 82728; 82746; 82805; 82948; 83540; 83735; 84155; 84156; 84466; 84484; 85014; 85018; 85025; 85610; 85730; 86706; 86850; 86900; 86920; 87040; 87340; 93005; 93970; 94799; 99252; 99284; J0696; J1644; J1756; J1938; J1940; J2354; J2470; J2543; J3373; J3475; J7030; J7050; P9016; P9047